=== PATIENT | male | born 1945 | race Hispanic/Latino ===

== ENCOUNTER 2021-01-24 18:01 | Emergency (ER) | payer MEDICARE ==
[~2021-01-24] VITALS: Ht 180.3 cm; Wt 55.3 kg
== END 2021-01-24 18:30 | disposition home or self-care (01) ==
LOC: ER 18:19
DX: T82.898A Other specified complication of vascular prosthetic devices, implants and grafts, initial encounter (principal); C16.9 Malignant neoplasm of stomach, unspecified; D64.9 Anemia, unspecified
CPT/HCPCS: 99282